=== PATIENT | female | born 1965 | race Caucasian/White ===

== ENCOUNTER 2019-10-19 10:52 | Emergency (ER) | payer MEDICAID ==
[~2019-10-19] VITALS: Ht 160 cm; Wt 56.7 kg
[2019-10-19 11:15] VITALS: BP_SYST 112
--- NOTE | 2019-10-19 12:20 | NUR ---
Patient to ER bed H1 to gown for evaluation. Side rails up.
--- NOTE | 2019-10-19 12:30 | NUR ---
Note undone in EDM - 10/19/19 at 1256 by [email or web address] Patient arrived in the ED c/o lower abdominal pain and nausea x 1 week. Denied any nausea, vomiting, fevers or chills. Denied any UTI symptoms. Patient stated she tested positive for . Patient is alert and oriented x4, respirations even and unlabored, speaking in full sentences and ambulating with a steady gait. VSS, pain level 7/10. Informed of the wait time. INstructed to notify ED staff for any changes in condition or wosrening of symptoms. Patient verbalized understanding.
--- NOTE | 2019-10-19 12:40 | NUR ---
ER Dr. Khan at bedside examining patient.
--- NOTE | 2019-10-19 12:53 | NUR ---
Administered Tylenol 500mg as ordered by Dr. Khan. Patient tolerated the medication well.
[2019-10-19 12:54] VITALS: BP_SYST 112
--- NOTE | 2019-10-19 12:54 | NUR ---
Patient given written and verbal discharge instructions and verbalizes understanding. ER MD discussed with patient the results and treatment provided. Patient in stable condition. ID arm band removed. No Rx given. Patient educated on pain management and to follow up with PMD. Pain Scale 0/10. Opportunity for questions provided and answered. Medication side effect fact sheet provided.
--- NOTE | 2019-10-19 12:57 | NUR ---
Patient arrived in the ED c/o facial bruises. Denied any nausea, vomiting, fevers or chills. Patient is requesting form completion for a Substance abuse home. Patient is alert and oriented x4, respirations even and unlabored, speaking in full sentences and ambulating with a steady gait. VSS, pain level 5/10. Informed of the wait time. INstructed to notify ED staff for any changes in condition or wosrening of symptoms. Patient verbalized understanding.
[2019-10-19] MEDS ORDERED: ACETAMINOPHEN 500 MG TABLET ONE (13:07)
== END 2019-10-19 12:54 | disposition home or self-care (01) ==
LOC: SED 10:52
DX: S05.12XA Contusion of eyeball and orbital tissues, left eye, initial encounter (principal); Z88.2 Allergy status to sulfonamides; W22.8XXA Striking against or struck by other objects, initial encounter; Y93.89 Activity, other specified; Y92.89 Other specified places as the place of occurrence of the external cause; Y99.8 Other external cause status
CPT/HCPCS: 99282